=== PATIENT | male | born 1995 | race Caucasian/White ===

== ENCOUNTER 2019-07-14 02:38 | Emergency (ER) | payer MEDICAID ==
[~2019-07-14] VITALS: Ht 172.7 cm; Wt 54.5 kg
[2019-07-14] MEDS ORDERED: TETanus/Pertussis (Acell)/Diphther VAC/PF (Tdap-Adult) 0.5ml syringe IM ONE (03:10)
[2019-07-14] MEDS ORDERED: BUPIVAcaine 0.5% inj/PF 30 ml vial IJ ONE (03:10)
[2019-07-14] MEDS ORDERED: CEPH-572 PO (03:13)
[2019-07-14] MEDS ORDERED: SULF1TAB49 PO (03:13)
--- NOTE | 2019-07-14 03:48 | NUR ---
LACERATION TRAY SET UP / MD TO KNUM THE LEFT THUMB
[2019-07-14] MEDS ORDERED: ONDA4TAB6 PO (04:43)
[2019-07-14] MEDS ORDERED: HYDR-3965 PO (04:43)
[2019-07-14 05:40] VITALS: BP 119/59
== END 2019-07-14 05:35 | disposition home or self-care (01) ==
LOC: ER 02:39
DX: L03.012 Cellulitis of left finger (principal); F15.90 Other stimulant use, unspecified, uncomplicated; Z79.899 Other long term (current) drug therapy
CPT/HCPCS: 26011; 90471; 99284

== ENCOUNTER 2019-07-14 18:09 | Emergency (ER) | payer MEDICAID ==
[~2019-07-14] VITALS: Ht 170.2 cm; Wt 57.4 kg
[~2019-07-14 18:09] MED LIST: CEPH-572 PO; HYDR-3965 PO; ONDA4TAB6 PO; SULF1TAB49 PO
[2019-07-14 18:16] VITALS: BP 122/69
== END 2019-07-14 20:42 | disposition home or self-care (01) ==
LOC: ER 18:09
DX: L03.011 Cellulitis of right finger (principal); F15.90 Other stimulant use, unspecified, uncomplicated; Z59.0 Homelessness; Z79.2 Long term (current) use of antibiotics; Z79.899 Other long term (current) drug therapy
CPT/HCPCS: 99281

== ENCOUNTER 2019-07-15 17:02 | Emergency (ER) | payer MEDICAID ==
[~2019-07-15] VITALS: Ht 170.2 cm; Wt 50.0 kg
[2019-07-15 17:06] VITALS: BP 115/68
[2019-07-15] MEDS ORDERED: LIDOcaine 1% w/EPI 1:200,000 injection 10mL vial IM ONE (19:00)
[2019-07-15] MEDS ORDERED: LIDOcaine 1% W/epiNEPHrine 1:100,000 20ml vial IJ ONE (19:05)
--- NOTE | 2019-07-15 20:19 | NUR ---
[facility], [facility] SAID PT HAD NO SERVICES AT THIS TIME. PT STATES HE'LL WALK TO AN ALTERNATE DESTINATION, DECLINED TRANSPORTATION. PT GIVEN MEAL, PT HAS WEATHER APPROPRIATE CLOTHING
== END 2019-07-15 20:27 | disposition home or self-care (01) ==
LOC: ER 17:02
DX: L02.512 Cutaneous abscess of left hand (principal); L03.012 Cellulitis of left finger; F15.90 Other stimulant use, unspecified, uncomplicated; Z59.0 Homelessness; Z79.899 Other long term (current) drug therapy
CPT/HCPCS: 26011; 99284

== ENCOUNTER 2019-08-25 09:32 | Emergency (ER) | payer MEDICAID ==
[~2019-08-25] VITALS: Ht 170.2 cm; Wt 62.0 kg
[~2019-08-25 09:32] MED LIST changes: -CEPH-572 PO; -HYDR-3965 PO; -SULF1TAB49 PO
[2019-08-25] MEDS ORDERED: ibuprofen tablet 400 MG TABLET PO ONE (11:20)
[2019-08-25] MEDS ORDERED: IBUP-1984 PO (11:33)
[2019-08-25 12:31] VITALS: BP 101/66
== END 2019-08-25 12:36 | disposition home or self-care (01) ==
LOC: ER 09:32
DX: M79.671 Pain in right foot (principal); M79.672 Pain in left foot; Z59.0 Homelessness; Z79.899 Other long term (current) drug therapy; W17.89XA Other fall from one level to another, initial encounter; Y93.39 Activity, other involving climbing, rappelling and jumping off; Y92.812 Truck as the place of occurrence of the external cause; Y99.8 Other external cause status
CPT/HCPCS: 29515; 72100; 73610; 73630; 99284